=== PATIENT | male | born 1960 | race Caucasian/White ===

== ENCOUNTER 2025-03-02 08:32 | Day surgery (SDC) | payer MEDICARE, SELFPAY ==
[2025-03-02] VITALS (10 sets, daily range): BP systolic 100–143; BP diastolic 63–88; PULSE 53–74; RESP 16; TEMP 36.3–36.6; O2SAT 94–97; BMI 25.9
[2025-03-02] MEDS: Lactated Ringers 1,000 ML 15 ML IV (09:13)
--- NOTE | 2025-03-02 09:31 | PRE.ANES_ITS ---
ASA Classification* ASA Classification ASA Classification: 2 Assessment & Plan Anesthesia* Anesthesia Assessment Anesthesia Assessment: Discussed sedation and/or anesthesia options, risks, benefits, and alternatives with patient/parents/legal guardian/POA. Questions invited. The patient/parents/legal guardian/POA seems to understand and agrees to proceed with anesthesia plan. Reviewed the physical assessment, medical history, allergy history and patient home medications list prior to surgery/procedure/anesthetic and documented any changes. Performed airway and anesthesia risk assessments. Anesthesia Type Anesthesia Type: MAC History Source History Obtained from:: Patient and Chart Anesthesia Focused Assessment* Temperature: 97.6 F Pulse Rate: 66 Blood Pressure: 143/88 Respiratory Rate: 16 Pulse Ox: 97 Oxygen Delivery Method: Room Air Airway Assessment Mouth opens: 2 cm Mallampati Score: IV Teeth Condition: Intact Neck Range of motion (ROM): Full ROM Focused Labs Anesthesia Preop lab: CBC WBC 7.3 K/mm3 (4.4-11.0) 12/17/16 07:42 12/17/16 RBC 5.36 M/mm3 (4.6-6.2) 12/17/16 07:42 12/17/16 Hgb 15.7 g/dl (13.0-16.5) 12/17/16 07:42 12/17/16 Hct 48.5 % (40-54) 12/17/16 07:42 12/17/16 Plt Count 247 K/mm3 (150-450) 12/17/16 07:42 12/17/16 CHEMISTRY Potassium 3.8 mmol/L (3.5-5.1) 03/29/17 07:44 03/29/17 Sodium 141 mmol/L (136-145) 03/29/17 07:44 03/29/17 BUN 17 mg/dL (7-18) 03/29/17 07:44 03/29/17 Creatinine 1.03 mg/dL (0.70-1.30) 03/29/17 07:44 03/29/17 Glucose 101 mg/dL (70-110) 03/29/17 07:44 03/29/17 COAG Pre-Assessment Diagnosis/Proposed Procedure Planned Operative Procedure(s): RIGHT LOWER BASAL CELL CARCINOMA EXCISON AND ALLOGRAFT Anesthesia History Anesthesia History - greenhouse transplanter: Anesthesia History - greenhouse transplanter Hx Hospitalization No 02/26/25 14:29 Any Problems With Anesthesia Yes: SLOW AWAKEN 02/26/25 14:29 Cholinesterase deficiency No 02/26/25 14:29 You/Your Family Experience No 02/26/25 14:29 fever (hyperthermia) with Relationship Recent Exposure to Contagious No 03/02/25 09:05 Disease Does patient have nerve No 02/26/25 14:29 stimulator Patient instructed to have device shut off --Does patient have Pacemaker No 03/02/25 09:05 or ICD? When Was Last Pacemaker Check QUESTION #4 FULL TEXT: You/Your Family Experience fever (hyperthermia) with Anesthesia Last Oral Intake Last Oral intake: Last Oral Intake NPO since 06:00 03/02/25 09:05 Meds taken in AM with sips of Yes 03/02/25 09:05 water? Meds patient instructed to take am of surgery Any additional information?: Yes NPO since: 06:00 (Patient had a glass of water and a cup of coffee at 6 AM.) Meds taken in AM with sips of water?: Yes Meds patient instructed to take am of surgery: Finasteride PONV PONV - greenhouse transplanter: PONV - greenhouse transplanter Female No 02/26/25 14:29 HX of Motion Sickness No 02/26/25 14:29 HX of N/V After Surgery No 02/26/25 14:29 Non-Smoker Yes 02/26/25 14:29 Duration of Surgery greater Yes 02/26/25 14:29 than 60 minutes Number of Risk Factors 2 02/26/25 14:29 PONV Score Moderate Risk 02/26/25 14:29 Height & Weight Height & Weight: Anesthesia: Height & Weight Height 6 ft 3 in 03/02/25 09:05 Weight: 94 kg 03/02/25 09:05 Body Mass Index (BMI) 25.9 03/02/25 09:05 Respiratory Assessment Respiratory Assessment - greenhouse transplanter: Respiratory Tract Infection Hx - greenhouse transplanter Hx Respiratory Tract Infection No 02/26/25 14:29 STOP Sleep Apnea STOP Sleep Apnea - greenhouse transplanter: STOP Sleep Apnea - greenhouse transplanter Hx Hypertension Yes: CONTROLLED WITH MED 02/26/25 14:29 Hx Sleep Apnea Yes 02/26/25 14:29 CPAP Yes 02/26/25 14:29 BIPAP No 02/26/25 14:29 Do you snore loudly (louder than talking or can be heard Do you often feel tired/ fatigued/ sleepy during daytime? Has anyone observed you stop breathing during sleep? STOP Results Positive 02/26/25 14:29 QUESTION #5 FULL TEXT : Do you snore loudly (louder than talking or can be heard through closed doors)? Tobacco Use History Tobacco Use History - greenhouse transplanter: Tobacco Use History - greenhouse transplanter Tobacco Use Smoking Status Never smoker 02/26/25 14:29 Hx Tobacco Use No 02/26/25 14:29 Years Smoking Packs Smoked per Day Smoking Cessation Date was within the last 15 years Hx Smoking Cessation Date Hx Smoking Cessation Counseling Hematologic Medial History Hematologic Hx - greenhouse transplanter: Hematologic Medical Hx - call center representative Hx of Blood Transfusion No 02/26/25 14:29 Hx of Transfusion in last 3 No 02/26/25 14:29 Months Date of Last Transfusion (if within last 3 months) Ever experience any problems No 02/26/25 14:29 with transfusion(s)? Specify any problems Hx of Preganancy in last 3 N/A 02/26/25 14:29 Months Nurse Filling Out Transfusion DSCHRIBER 02/26/25 14:29 & Questions: Date: 02/26/25 02/26/25 14:29 Time: 14:30 02/26/25 14:29 Patient unable to answer at this time (ie. confused, unrespo /Reproduction History /Reproductive History - greenhouse transplanter: /Reproductive Hx- greenhouse transplanter Hx Now No 02/26/25 14:29 Gestational Age (in weeks): EDC: Hx Hx Para Hx Section SAB No 02/26/25 14:29 Active Medications Active Medications: Current Medications Generic Name Dose Route Start Last Admin Trade Name Freq PRN Reason Stop Dose Admin Cefazolin Sodium 2 gm/ Sodium 110 mls @ 150 mls/hr 03/02/25 10:00 Chloride IV 03/02/25 10:43 INTRAOP ONE Lactated Ringer's 1,000 mls @ 15 mls/hr 03/02/25 09:00 03/02/25 09:13 IV 15 mls/hr .Q48H CHERYL Administration PFSH Medical History Wears hearing aid Wears glasses Alcohol use Diabetes Prostate disease Easy bruising High cholesterol Leg cramps Non-smoker CPAP (continuous positive airway pressure) dependence Skin cancer Hypertension Home Medications ?Medication ?Instructions ?Recorded ?Last Taken ?Type chlorthalidone 50 mg tablet 50 mg PO DAILY BP 02/15/15 03/01/25 History tirzepatide 5 mg/0.5 mL 5 mg subcut FR 02/24/2501/28 History subcutaneous pen injector (Mounjaro) ertugliflozin 15 mg tablet 15 mg PO DAILY DM 02/26/25 03/01/25 History (Steglatro) finasteride 5 mg tablet 5 mg PO DAILY 02/26/2503/02 History metformin 1,000 mg tablet 1,000 mg PO BID 02/26/2511/24 History potassium chloride 10 mEq 40 meq PO BID 02/26/2503/01 History tablet,extended release rosuvastatin 10 mg tablet 10 mg PO QHS 02/26/25 History Allergy/AdvReac Type Severity Reaction Status Date / Time No Known Allergies Allergy Verified 03/02/25 09:02 Surgical History Hx of colonoscopy Hx of removal of cyst Hx of appendectomy Hx laparoscopic cholecystectomy Social History Smoking Status: Never smoker Review of Systems (Anesthesia) ROS Narrative System reviewed and no additional complaints, except as documented.
[2025-03-02 09:33] LABS: Bedside Glucose 139 mg/dL (74-106)
--- NOTE | 2025-03-02 09:48 | PCM.HP.STD ---
HPI - General HPI Narrative BCC NODULAR AND SCAR Details: Elias Lama is a delightful 64-year-old male with a right lower back basal cell carcinoma, nodular type. Lesion had been treated with topical cream (5-FU) as it has been present for several months, and it began to change, get larger, and did not resolve after couple months of treatment. Repeat biopsy (shave biopsies x 2) were therefore performed on 16 Feb 2025 and demonstrated a basal cell carcinoma, nodular type and scar. He was referred to me for definitive wide local excision by the dermatology office ([facility]) who had been taking care of his skin problems. Patient has not had any other major skin cancers. He is diabetic with an A1c of 7 (type II controlled with Mounjaro) He is not a smoker. No blood thinner. Current Encounter (DATE OF SURGERY H&P UPDATE): I saw and examined the patient this morning in pre-operative holding. We discussed risks and benefits of today's surgery and they would like to proceed. NO CHANGE in health history since last seen and evaluated. Ready to proceed with surgery. [facility] Medical History Wears hearing aid Wears glasses Alcohol use Diabetes Prostate disease Easy bruising High cholesterol Leg cramps Non-smoker CPAP (continuous positive airway pressure) dependence Skin cancer Hypertension Home Medications ?Medication ?Instructions ?Recorded ?Last Taken ?Type chlorthalidone 50 mg tablet 50 mg PO DAILY BP 02/15/15 03/01/25 History tirzepatide 5 mg/0.5 mL 5 mg subcut FR 02/24/25 02/12/25 History subcutaneous pen injector (Mounjaro) ertugliflozin 15 mg tablet 15 mg PO DAILY DM 02/26/25 03/01/25 History (Steglatro) finasteride 5 mg tablet 5 mg PO DAILY 02/26/25 03/02/25 History metformin 1,000 mg tablet 1,000 mg PO BID 02/26/25 03/01/25 History potassium chloride 10 mEq 40 meq PO BID 02/26/25 03/01/25 History tablet,extended release rosuvastatin 10 mg tablet 10 mg PO QHS 02/26/25 03/01/25 History Allergy/AdvReac Type Severity Reaction Status Date / Time No Known Allergies Allergy Verified 03/02/25 09:02 Surgical History Hx of colonoscopy Hx of removal of cyst Hx of appendectomy Hx laparoscopic cholecystectomy Social History Smoking Status: Never smoker Vital Signs Vital Signs Vital Signs: 03/02/25 09:05 03/02/25 09:05 03/02/25 09:39 Temperature 97.6 F L 97.6 F L Temperature Source Temporal Pulse Rate 66 66 Respiratory Rate 16 16 Respiratory Pattern Normal Blood Pressure 143/88 H 143/88 H Blood Pressure Mean 106 Blood Pressure Source Monitor Blood Pressure Position Semi-Fowlers Blood Pressure Location Right Arm Pulse Ox 97 97 Oxygen Delivery Method Room Air Room Air Weight Weight: 207 lb 3.752 oz Body Mass Index (BMI) 25.9 Physical Exam Narrative EXAM: Right lower back with indurated area of purple skin (violaceous shiny plaque) consistent with Dr. Hollins's biopsy site. The area measures ~4 x 5 cm. He has no inguinal or axillary lymphadenopathy. I marked the site with the patient in pre-operative holding and he was in agreement with the site harlan. Results Lab / Micro Data Labs: Laboratory Results - last 24 hr 03/02/25 09:01: POC Glucose 139 H Assessment & Plan Assessment/Plan (1) Nodular basal cell carcinoma: PLAN: Plan I talked to the patient extensively about his skin cancer diagnosis. We talked about basal cell carcinoma being locally invasive but unlikely to ever metastasize. I talked him about the risks, benefits, and alternatives to excision with 5 mm margins circumferentially. I talked him about placing a temporary dressing (with cadaver skin/allograft) while awaiting the permanent definitive pathology, followed by reconstruction. We talked about the reconstruction being local soft tissue rearrangement, and I talked him about local advancement and rotation flaps. I talked him about the risks of these flaps including breakdown and wound healing problems, as well as flap failure. I talked him about the risk of infection, bleeding, damage to surrounding structures as well as pain. I showed him in the mirror and with a ruler excision of the 3 x 3 cm lesion with the 5 mm margins (3.5 x 3.5 cm excision total). Plan for excision of the nodular basal cell carcinoma of the right lower back in the operating room (MAC/local) with 0.5 cm circumferential margins and placement of cadaver allograft with a bolster, followed by definitive management with local soft tissue arrangement. Patient happy with the plan. Plan CPT codes for insurance prior authorization are as follows: [id number], [id number], [id number] INTERVAL H&P PLAN, DATE OF SURGERY: We will proceed with surgery today.
--- NOTE | 2025-03-02 10:10 | OP.PCM_ITS ---
Operative Report (Standard) Operative Information Date of Procedure: 03/02/25 Pre-Operative Diagnosis: Right lower back basal cell carcinoma Post-Operative Diagnosis: Same Surgery/Procedure Performed: 1) Excision of right lower back basal cell carcinoma 5 x 4 centimeters (including 0.5 mm margins) (CPT:98059) 2) Complex closure right lower back wound, 7 centimeters (CPT: 56454) matchbook assembler: Yes Director Of Strategic Sales: Omayra Whitaker Tasks completed by first calender worker: Closing and Retracting Type of Anesthesia: MAC/Supplemental (30 cc of 50-50 mixture of 1% lidocaine with 1-200,000 epinephrine and 0.25% Marcaine with 1-200,000 epinephrine) RN Documented Start/Stop Times: Operation Date: 03/02/25 10:15 Case Time Into Pre-Op 03/02/25 08:50 Out of Pre-Op 03/02/25 10:14 Anesthesia Start 03/02/25 10:17 Into Room 03/02/25 10:17 Procedure Start 03/02/25 10:33 Procedure Start Time: 10:33 Procedure Stop Time: 10:53 Select all DRAINS/GRAFTS/IMPLANTS that apply: Tissue (Cadaver skin) Tissue details: TheraSkin cadaver allograft for a temporary dressing with a bolster Estimated Blood Loss: 20 cc Specimen collected: Yes Description of specimen(s) removed: Marked short supe rior long right lateral with a silk marking stitch Description of surgery: Indications: Elias Lama is a delightful 64-year-old male who is being treated with n onsurgical therapy for right lower extremity back basal cell carcinoma by a local energy efficient site manager. He failed management with nonsurgical options and the lesion became larger and was recently biopsied, again coming back nodular basal cell carcinoma. Is now a large violaceous plaque on the right lower back. He presents today for excision. He understands the risks and the benefits of the operation , as well as the alternative treatment therapies for basal cell carcinoma and would like to proceed with excision. I talked to him about placing a temporary dressing today while we wait for permanent margins as he may require some sort of soft tissue reconstruction for this area (too much tension for primary closure) v primary closure today. Procedure details: Patient was correctly identified in preoperative holding and the site was marked and confirmed with him and his . 5 mm margins were drawn out around the violaceous basal cell carcinoma lesion. He was taken back to the operating room where he was administered sedation and placed in a left lateral decubitus position. He was prepped and draped in sterile fashion and all proper timeouts were performed. The above-noted local solution was injected and given time to take effect. A 15 blade scalpel was used to excise the lesion full-thickness down to the fascia with 5 mm margins around the basal cell carcinoma. The specimen was marked short superior, long lateral. The total excision measured 4 x 5 centimeters. Hemostasis was obtained with Bovie electrocautery and the wound was irrigated with copious amounts normal saline. Undermining superiorly and inferiorly along the scarpas fascia was then carried out with the Bovie for a total undermining of 6 cm (3 cm in each direction) indicating complex closure of 7 cm (dog ears also excised laterally). The wound was closed with 2-0 PDS deep sutures that were used for progressive tension sutures as well. Then 3-0 Monocryl deep dermal sutures were placed and 3-0 monocryyl running suture followed by Prineo tape. He was awakened and taken the PACU in stable condition. Postoperative plan: Plan for adjacent tissue transfer for closure following definitive margins from pathology (once determined that margins are clear of cancer). Surgical Findings: Unable to primarily close following excision (too much tension) therefore requiring undermining and progressive tension sutures and subsequent comoplex primary closure Complications Complications: No
[2025-03-02] MEDS: Lidocaine 1% /Epi 1:100 (50ml) 50 ML VIAL (10:15)
[2025-03-02] MEDS: Bupiv/Epi 0.25% 30 ML Vial (10:15)
--- NOTE | 2025-03-02 10:15 | LES_PTH ---
PATIENT: LENORA BRENNAN LOC: [facility] [place] U#:[id number] AGE/SX: 64/M ROOM: RE03/02/[address]: Dr. Augie Fofana MD : 1960 BED: DIS: 03/02/2025 SPEC #: [id number] RECD: 03/02/25 13:17 STATUS: FAUSTINO PIÑA #: [id number] MANOJ: 03/02/25 10:[address]: Augie Fofana DEPT: SURGICAL PATHOLOGY RECD BY: Kurtis Jimenez Tissues: A - Skin of back, NOS Procedures: Surgery Specimen Level IV HEADER OPERATION: Right lower basal cell carcinoma excision PRE-OP DIAGNOSIS: Nodular basal cell carcinoma TISSUE SUBMITTED: A- Right lower back basal cell carcinoma *short stitch- superior, long stitch- lateral right* MICROSCOPIC DIAGNOSIS A. Right lower back, basal cell carcinoma, excision: * Negative for residual basal cell carcinoma (margins free). * Scar and associated reactive changes consistent with a previous surgical procedure. MICROSCOPIC DESCRIPTION Slides are reviewed. GROSS DESCRIPTION A. Received in formalin in a container labeled with the patient's name, date of , and right lower back basal cell carcinoma, long stitch R lateral, short stitch superior is an oriented and ovoid skin excision with a short stitch indicating superior margin and long stitch indicating lateral right margin. The short stitch is arbitrarily designated as 12:00, and the long stitch is arbitrarily designated as 3:00. The specimen is 3.8 cm from 9:00 to 3:00 (left medial to right lateral), 3.7 cm from 12:00 to 6:00 (superior to inferior) with an excisional depth up to 1.6 cm. The herman and wrinkled epidermis is notable for an irregular, ill-defined, white and pearly patch with central ulceration.Patch measurement: 1.9 x 1.8 cm. It is situated to the margins as follows:12:00/superior: 1.1 cm3:00/right lateral: 0.8 cm6:00/inferior: 0.7 cm9:00/left medial: 1.5 cm The 12:00 half is inked green, and the 6:00 half is inked black. The specimen is serially sectioned from 3:00 (lateral right) to 9:00 (medial left) into 10 slices to reveal that the lesion is within slices 3-7, at the central aspect, with the ulcer in slices 4-5. The lesion appears to extend 0.3 cm deep but is at least 1.0 cm from the deep margin. The remaining cut surfaces are herman-yellow, lobulated, and unremarkable. A section diagram is made.Submitted entirely as follows:A1. Slice 1, perpendicular sections of 3:00 (lateral right) marginA2. Slice 2, unremarkable area between margin and lesionA3. Slice 3 with pearly aspect of patchA4-5. Slice 4, bisected and entirely submitted (with ulcer; 12:00/superior half in A4, 6:00/inferior half in A5)A6-7. Slice 5, bisected and entirely submitted (with ulcer; 12:00/superior half in A6, 6:00/inferior half in A7) A8-9. Slice 6, bisected and entirely submitted (with patch; 12:00/superior and A8, 6:00/inferior and A9)A10. Slice 7, bisected and entirely submitted (remainder of patch)A 11. Slice 8, whole (unremarkable)A 12. Slice 9, whole (unremarkable)A 13. Slice 10, perpendicular sections of 9:00/medial left margin [facility] 03-02-2025 CPT:96810
[2025-03-02] MEDS: Cefazolin 2 GM in 0.9% Normal Saline (100mL Bag) 100 ML IV (10:17)
--- NOTE | 2025-03-02 11:06 | PCM.POST.ANE ---
Anesthesia: Postop Eval I Current Vital Signs Temperature: 97.4 F Pulse Rate: 53 Blood Pressure: 100/63 Respiratory Rate: 16 Pulse Ox: 97 Assessment Airway patent: Yes Spontaneous unlabored respirations: Yes nausea: No Vomiting: No Anesthesia Complication: No Fluid Hydration Crystalloid volume administer (ml): 700 Total IV fluid infused: 700 Progress Note Anesthesia document: Postop Eval 1 completed: Yes
--- NOTE | 2025-03-02 13:18 | POSTOPAN2_ITS ---
Anesthesia Postop Eval I Sum Postop Eval Completion status Anesthesia document: Postop Eval 1 completed: Yes Anesthesia Postop Eval I Summary Anesthesia Postop Eval I Summary: Anesthesia Postop Eval I: Assessment Summary Airway patent Yes 03/02/25 11:06 KNOTTING MACHINE OPERATOR PORTABLE.TNES Spontaneous unlabored Yes 03/02/25 11:06 KNOTTING MACHINE OPERATOR PORTABLE.TNES respirations Mental status nausea No 03/02/25 11:06 KNOTTING MACHINE OPERATOR PORTABLE.TNES Vomiting No 03/02/25 11:06 KNOTTING MACHINE OPERATOR PORTABLE.TNES Anesthesia Postop Eval I: Fluid Summary Crystalloid volume administer 700 03/02/25 11:06 KNOTTING MACHINE OPERATOR PORTABLE.TNES (ml) Colloids volume administered ( ml) Blood Product volume administered (ml) Total IV fluid infused 700 03/02/25 11:06 KNOTTING MACHINE OPERATOR PORTABLE.TNES Anesthesia Postop Eval I: Summary Notes Anesthesia Complication No 03/02/25 11:06 KNOTTING MACHINE OPERATOR PORTABLE.TNES Anesthesia Complication Comment: Post-operative progress note Anesthesia: Postop Eval II Evaluation Mental status: Awake and Calm Pain Level: 0 nausea: No Vomiting: No Complications Anesthesia Complication: No
--- NOTE | 2025-03-02 13:18 | PCM.POSTANE2 ---
Anesthesia Postop Eval I Sum Postop Eval Completion status Anesthesia document: Postop Eval 1 completed: Yes Anesthesia Postop Eval I Summary Anesthesia Postop Eval I Summary: Anesthesia Postop Eval I: Assessment Summary Airway patent Yes 03/02/25 11:06 [email or web address] Spontaneous unlabored Yes 03/02/25 11:06 [email or web address] respirations Mental status nausea No 03/02/25 11:06 [email or web address] Vomiting No 03/02/25 11:06 [email or web address] Anesthesia Postop Eval I: Fluid Summary Crystalloid volume administer 700 03/02/25 11:06 [email or web address] (ml) Colloids volume administered ( ml) Blood Product volume administered (ml) Total IV fluid infused 700 03/02/25 11:06 [email or web address] Anesthesia Postop Eval I: Summary Notes Anesthesia Complication No 03/02/25 11:06 [email or web address] Anesthesia Complication Comment: Post-operative progress note Anesthesia: Postop Eval II Evaluation Mental status: Awake and Calm Pain Level: 0 nausea: No Vomiting: No Complications Anesthesia Complication: No
== END 2025-03-02 12:10 | disposition home or self-care (01) ==
LOC: SDC 08:40 → AC 08:41
PROVIDERS: Referring Provider Surgery Plastic and Reconstructive Surgery; Visit Provider Surgery Plastic and Reconstructive Surgery
PROC: (CPT 11606; principal; 2025-03-02 10:05)
DX: C44.519 Basal cell carcinoma of skin of other part of trunk (principal); E11.9 Type 2 diabetes mellitus without complications; E78.00 Pure hypercholesterolemia, unspecified; I10 Essential (primary) hypertension; Z79.84 Long term (current) use of oral hypoglycemic drugs; Z79.85 Long-term (current) use of injectable non-insulin antidiabetic drugs; Z79.899 Other long term (current) drug therapy
CPT/HCPCS: 11606; 13101; 00300; 82962; 88305